=== PATIENT | male | born 1930 | race Caucasian/White ===

== ENCOUNTER → 2017-01-15 | Day surgery (SDC) | payer MEDICARE, BC ==
[~2017-01-15] VITALS: Ht 175.3 cm; Wt 75.0 kg
[~2017-01-15] MED LIST: ALDACTONE25 MG PO; BELLADONNA-OPI1 EACH R; COLACE100 MG PO; COUMADIN ** 9/62 MG PO; COUMADIN ** IA3 MG PO; COUMADIN 4MG **4 MG; COUMADIN 4MG **4 MG PO; COUMADIN3 MG PO; FISH OIL1000 MG PO; HYDROGEN PEROXID1 ML TOP; IMDUR30 MG PO; IMDUR60 MG PO; K-TAB ER20 MEQ PO; LASIX20 MG PO; LASIX40 M1 PO; LASIX40 MG PO; LOVENOX 3030 MG/0.3 SC; LOVENOX 6060 MG/0.6; LOVENOX 8080 MG/0.8 SUB-Q; METAMUCIL PACKE1 PKT PO; MYLICON OR GAS-80 MG PO; NEOSPORIN15 GM TOP; NITROSTAT0.4 MG PO; NITROSTAT0.4 MG SL; PERCOCET 5-3251 EACH PO; PLAVIX75 MG PO; POTASSIUM CHLO20 ME1 PO; PRILOSEC20 M1 PO; PRILOSEC20 MG PO; PRINIVIL (ZESTRI5 MG PO; PRINIVIL OR ZES10 MG PO; PRINIVIL5 MG PO; RANEXA1000 MG PO; SIMVASTATIN40 MG PO; SPIRIVA18 MCG INH; SPIRONOLACTONE25 MG PO; STOOL SOFTENER100 MG PO; TYLENOL EXTRA500 MG PO; TYLENOL WITH C1 EACH PO; TYLENOL/COD#31 TAB PO; VITAMIN B-12500 MCG PO; VITAMIN D-32000 UNI1 PO; VITAMIN D-32000 UNIT PO; VITAMIN D1000 UNIT PO; ZEBETA5 M1 PO; ZEBETA5 MG PO; ZOCOR40 MG PO
--- NOTE | ~2017-01-15 | OR ---
PATIENT'S NAME: PRAKASH LAZCANO [facility] AGE: 86 Y [address] ROOM: [place] [address] LOCATION: [facility] [place] ADMIT DATE: 01/15/2017 OR/Procedure Report DISCHARGE DATE: FAMILY PHYSICIAN: Latonya Azul MD ATTENDING PHYSICIAN: CARMEN HERNANDEZ SURGEON: Carmen Hernandez MD [employer]ICER: None. DATE OF PROCEDURE: 01/15/2017 PREOPERATIVE DIAGNOSIS: History of urothelial carcinoma, low-grade Ta. POSTOPERATIVE DIAGNOSIS: History of urothelial carcinoma, low-grade Ta. PROCEDURES: Cystourethroscopy with bladder biopsy and fulguration. HISTORY OF PRESENT ILLNESS: The patient is a pleasant 86-year-old male with recurrent urothelial carcinoma of bladder. He was recently noted on surveillance cystoscopy to have multiple small bladder tumor recurrences. The patient was explained the risks, benefits, indications, alternatives to above procedure, and wished to proceed and consented freely. ANESTHESIA ADMINISTERED: Monitored anesthesia care. DESCRIPTION OF OPERATION: The patient was brought back to the operating room, where he was placed on the OR table in the supine position. A surgical time- out was called, where the patient identification, surgical site, and procedure were then verified. We also did verify that the patient received an IV Levaquin antibiotic within an hour of beginning the procedure. The patient then underwent successful administration of monitored anesthesia care. The patient was then moved and placed in a low lithotomy position, where his genital area was then prepped and draped in the usual sterile fashion. His urethral meatus did not accommodate the rigid cystoscope and so I gently dilated his urethral meatus using the male urethral sounds and was then able to easily advance the resectoscope sheath using the visual obturator. His anterior urethra was within normal limits. His posterior urethra was notable for some [id number] bilobar hyperplasia of the prostate. Upon entering to his bladder, full mcconnell-cystoscopy was performed including retroflexion. His ureteral orifices were noted to be in their orthotopic location. 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 He did have multiple areas of bladder tumor recurrence located along his posterior bladder wall with approximately 6 papillary bladder tumors along his posterior bladder wall, but also he did have a papillary bladder tumor along his bladder neck. All of these bladder tumors measured approximately 0.5 cm in size. I then used the cold cup biopsy forceps to sample 2 of these tumors and then cauterized the remaining. At 1 PATIENT'S NAME: PRAKASH LAZCANO [facility] AGE: 86 Y [address] ROOM: [place], [place] [address] LOCATION: [facility] [place] ADMIT DATE: 01/15/2017 OR/Procedure Report DISCHARGE DATE: FAMILY PHYSICIAN: Latonya Azul MD ATTENDING PHYSICIAN: CARMEN HERNANDEZ of the posterior wall bladder biopsy sites, the bladder wall did appear to be somewhat thin as this appeared now to be a small bladder cellule at the area, where the bladder biopsy site occurred. This did not appear to be a complete bladder perforation, but given the appearance I did not feel comfortable proceeding with mitomycin-C installation. This did not appear to be a through- and-through bladder perforation; so, I did not feel that a catheter would be indicated at the end of the case. Also, the bladder did easily fill/distend and hold fluid appropriately. I inspected for hemostasis, which was excellent. On repeat inspection, there did not appear to be any residual untreated bladder tumors remaining. I then emptied the patient's bladder and he was then awoken from monitored anesthesia care. He was then transferred to the recovery bed and transported to the recovery room in good condition. COMPLICATIONS: None. SPECIMENS: Bladder biopsies for pathologic analysis. FOLLOW UP PLAN: We will plan to see the patient back for followup in [facility] in 3 months for surveillance cystoscopy. We will also plan to have him pass a trial of void prior to discharge home today. CARMEN HERNANDEZ MD GP/modl /[id number] d: 01/16/17 0029 t: 01/16/17 1122, OPERATIVE SUMMARY
[2017-01-15 10:13] LABS: INR - (THERAPEUTIC) 1.17 (0.92-1.07); PROTIME 12.3 SECONDS (9.8-11.4)
== END | disposition disaster alternative care site (69) ==
LOC: GPOC 01-06 15:00 → GSDC 09:12
PROVIDERS: Urology
PROC: 0TBB8ZX Excision of Bladder, Via Natural or Artificial Opening Endoscopic, Diagnostic (ICD-10-PCS; principal; 2017-01-15)
DX: C67.4 Malignant neoplasm of posterior wall of bladder (principal); I25.810 Atherosclerosis of coronary artery bypass graft(s) without angina pectoris; I48.91 Unspecified atrial fibrillation; I10 Essential (primary) hypertension; K21.9 Gastro-esophageal reflux disease without esophagitis; Z85.820 Personal history of malignant melanoma of skin
CPT/HCPCS: J1956; J7030; J9280